=== PATIENT | female | born 1940 | race Caucasian/White ===

== ENCOUNTER 2017-04-02 08:15 | Day surgery (SDC) | payer MEDICARE ==
[2017-03-30 16:15] LABS: HEMATOCRIT 39.2 % (36.0-48.0); MCH 31.9 pg (26.0-34.0); MCHC 33.2 g/dL (31.0-37.0); MCV 96.1 fL (80.0-100.0); MEAN PLATELET VOLUME 10.9 fL (7.4-10.4); RBC 4.08 10x6/uL (4.00-5.40); RDW 13.3 % (11.5-14.5); WBC 6.5 10x3/uL (4.8-10.8)
[2017-03-30 16:30] LABS: ANION GAP 14.6 mmol/L (8-16); CALCIUM 9.8 mg/dL (8.5-10.1); CARBON DIOXIDE 26.6 mmol/L (21.0-32.0); CREATININE - SERUM 0.9 mg/dL (0.6-1.3); POTASSIUM - SERUM 4.2 mmol/L (3.5-5.1)
[~2017-04-02] VITALS: Ht 157.5 cm; Wt 90.9 kg
[2017-04-02] VITALS (12 sets, daily range): BP systolic 101–158; BP diastolic 47–84; Ht 157.5 cm; Wt 90.9 kg
[~2017-04-02 08:15] MED LIST: BAYER CHEWABLE81 MG PO; CELEXA20 MG PO; COZAAR100 MG PO; ELIQUIS2.5 MG PO; EZFE 200200 MG PO; HYDROCODONE-APA1 TAB PO; LODINE400 MG PO; MS CONTIN15 MG PO; MULTIPLE VITAMI1 TA1 PO; OXYCODONE HCL5 MG PO; PRAVACHOL40 MG PO; PRILOSEC20 MG PO; SYNTHROID175 MCG PO; TYLENOL W/CODEI1 TAB PO
[2017-04-03] VITALS: BP 120/56
[2017-04-03 04:00] VITALS: BP 127/62
[2017-04-03 06:04] LABS: BASOPHILS 0.2 % (0-2); EOSINOPHILS 1.1 % (0-7); HEMATOCRIT 35.2 % (36.0-48.0); HEMOGLOBIN 11.3 g/dL (12-16); IMMATURE GRANULOCYTES 0.2 % (0-5); LYMPHOCYTES 12.9 % (15-50); MCH 31.9 pg (26.0-34.0); MCHC 32.1 g/dL (31.0-37.0); MCV 99.4 fL (80.0-100.0); MEAN PLATELET VOLUME 11.2 fL (7.4-10.4); MONOCYTES 10.5 % (2-11); NEUTROPHILS 75.1 % (40-80); PLATELET COUNT 246 10x3/uL (130-400); RBC 3.54 10x6/uL (4.00-5.40); RDW 13.8 % (11.5-14.5); WBC 8.9 10x3/uL (4.8-10.8)
[2017-04-03 06:26] LABS: ANION GAP 14.8 mmol/L (8-16); CALCIUM 8.5 mg/dL (8.5-10.1); CARBON DIOXIDE 25.3 mmol/L (21.0-32.0); CREATININE - SERUM 1.1 mg/dL (0.6-1.3); MAGNESIUM - SERUM 1.8 mg/dL (1.8-2.4); POTASSIUM - SERUM 4.1 mmol/L (3.5-5.1)
--- NOTE | 2017-04-03 07:30 | NUR ---
RECIEVED PT DURING WALKING ROUNDS. PT RESTING IN BED WITH COMPLAINTS OF PAIN OF A 4 ON A SCALE OF 1-10. CANTEEN MANAGER IN USE. ASSESSMENT DONE PER FLOWSHEET. BED IN LOW POSITION AND CALL LIGHT WITHIN REACH. WILL CONTINUE TO MONITOR.
[2017-04-03 08:24] VITALS: BP 118/47
[2017-04-03 12:40] VITALS: BP 124/48
[2017-04-03 16:39] VITALS: BP 112/59
[2017-04-03 19:00] VITALS: BP 124/45
[2017-04-04 04:00] VITALS: BP 115/59
[2017-04-04 06:12] LABS: BASOPHILS 0.1 % (0-2); EOSINOPHILS 2.2 % (0-7); HEMATOCRIT 31.5 % (36.0-48.0); HEMOGLOBIN 10.3 g/dL (12-16); IMMATURE GRANULOCYTES 0.1 % (0-5); LYMPHOCYTES 9.5 % (15-50); MCH 32.6 pg (26.0-34.0); MCHC 32.7 g/dL (31.0-37.0); MCV 99.7 fL (80.0-100.0); MEAN PLATELET VOLUME 11.4 fL (7.4-10.4); MONOCYTES 11.9 % (2-11); NEUTROPHILS 76.2 % (40-80); PLATELET COUNT 208 10x3/uL (130-400); RBC 3.16 10x6/uL (4.00-5.40); WBC 8.7 10x3/uL (4.8-10.8)
[2017-04-04 06:41] LABS: ANION GAP 11.9 mmol/L (8-16); CARBON DIOXIDE 26.8 mmol/L (21.0-32.0); CREATININE - SERUM 0.9 mg/dL (0.6-1.3); POTASSIUM - SERUM 3.7 mmol/L (3.5-5.1)
--- NOTE | 2017-04-04 07:30 | NUR ---
RECIEVED PT DURING WALKING ROUNDS. PT RESTING IN BED WITH NO COMPLAINTS OF PAIN OR DISCOMFORT AT THIS TIME. ASSESSMENT DONE PER FLOWSHEET. BED IN LOW POSITION AND CALL LIGHT WITHIN REACH. WILL CONTINUE TO MONITOR.
[2017-04-04 08:21] VITALS: BP 122/57
[2017-04-04] MEDS ORDERED: OXYCODONE HCL5 MG PO (08:23)
--- NOTE | 2017-04-04 08:35 | NUR ---
AM MEDICATIONS GIVEN, NEW ABDOMINAL BINDER RECIEVED AND PLACED ON PT AT THIS TIME. REPTILE FARMER D/C'D. PT SITTING UP TO SIDE OF BED EATING BREAKFAST. CALL LIGHT WITHIN REACH. WILL CONTINUE TO MONITOR.
--- NOTE | 2017-04-04 12:20 | NUR ---
IV REMOVED CATH INTACT, DISCHARGE INSTRUCTIONS GIVEN. ASSISTED PT UP TO THE BATHROOM, PT STATED SHE FELT THE NEED TO THROW UP AND THEN BEGAN TO VOMIT. VOMIT WAS YELLOWISH IN COLOR. PT STATED SHE FELT MUCH BETTER AFTER AND HAD NO MORE NAUSEA. CALLED AT THIS TIME AND RECIEVED ORDERS TO CALL IN [facility]. PT DISCHARGED VIA WHEELCHAIR TO HOME WITH FAMILY MEMBER.
== END 2017-04-04 14:06 | disposition home or self-care (01) ==
LOC: D.MS 08:15 → D.OPS 08:15 → D.PAN 10:15 → D.OPS 10:15 → D.MS 14:28 → D.OPS 04-04 14:06
PROVIDERS: Anesthesiology; Surgery
DX: K43.0 Incisional hernia with obstruction, without gangrene (principal); Z53.31 Laparoscopic surgical procedure converted to open procedure; J44.1 Chronic obstructive pulmonary disease with (acute) exacerbation; E07.9 Disorder of thyroid, unspecified; I10 Essential (primary) hypertension; K21.9 Gastro-esophageal reflux disease without esophagitis; F32.9 Major depressive disorder, single episode, unspecified; Z96.641 Presence of right artificial hip joint; Z96.651 Presence of right artificial knee joint; Z79.899 Other long term (current) drug therapy; Z01.812 Encounter for preprocedural laboratory examination

== ENCOUNTER 2018-01-02 09:28 | Day surgery (SDC) | payer MEDICARE, BC ==
[2018-01-01 11:33] LABS: HEMATOCRIT 41.2 % (36.0-48.0); HEMOGLOBIN 13.5 g/dL (12-16); MCH 30.8 pg (26.0-34.0); MCHC 32.8 g/dL (31.0-37.0); MCV 94.1 fL (80.0-100.0); MEAN PLATELET VOLUME 10.9 fL (7.4-10.4); RBC 4.38 10x6/uL (4.00-5.40); RDW 13.4 % (11.5-14.5); WBC 7.6 10x3/uL (4.8-10.8)
[~2018-01-02] VITALS: Ht 157.5 cm; Wt 88.5 kg
[~2018-01-02 09:28] MED LIST changes: +CLARITIN 10 MG10 MG PO; +PROAIR HFA8.5 GM INH; +ZOLOFT50 MG PO
[2018-01-02 09:49] VITALS: BP 118/73; Ht 157.5 cm; Wt 88.5 kg
[2018-01-02] MEDS ORDERED: HYDROCODON-ACE1 EAC7 PO (13:05)
[2018-01-02] MEDS ORDERED: CYCLOBENZAPRINE10 MG PO (13:06)
== END 2018-01-02 16:30 | disposition home or self-care (01) ==
LOC: D.OPS 09:28 → D.PAN 09:30 → D.OPS 09:30 → D.PAN 09:50 → D.OPS 16:30
PROVIDERS: Anesthesiology
DX: K43.0 Incisional hernia with obstruction, without gangrene (principal); Z01.812 Encounter for preprocedural laboratory examination

== ENCOUNTER → 2019-06-16 10:26 | Outpatient (CLI) | payer MEDICARE, BC ==
[2018-01-02 09:49] VITALS: BMI 35.7
[~2019-06-16 10:26] MED LIST changes: +CYCLOBENZAPRINE10 MG PO; +HYDROCODON-ACE1 EAC7 PO
--- NOTE | 2019-06-19 13:56 | EC ---
PATIENT:DAVION JENKINS DATE OF SERVICE: 06/16/19 SEX: F MEDICAL RECORD: [id number] DATE OF : 38 LOCATION:[facility] AGE OF PATIENT: 78 ADMISSION DATE: 06/16/19 REFERRING PHYSICIAN: INTERPRETING PHYSICIAN: KYLE GARCIA MD ECHOCARDIOGRAM REPORT ECHO CHARGES 4 ECHO COMPLETE Date: 06/16/19 CLINICAL DIAGNOSIS: ANGINA/KHAN/MURMUR/DIZZINESS H/O HTN ECHOCARDIOGRAPHIC MEASUREMENTS (adult normal given) AC root (d.<3.7cm) 3.2 cm LV Septum d (<1.2 cm> 1.2 cm Valve Excursion 1.6 cm LV Septum (systole) 1.5 cm Left Atria (s.<4.0cm> 3.7 cm LVPW d(<1.2cm) 1.0 cm RV (d.<2.3cm) 2.7 cm LVPW (sytole) 1.6 cm LV diastole(<5.6CM) 4.9 cm MV E-F(>70mm/sec) cm LV systole 3.4 cm LVOT Diameter 1.8 cm MV exc.(>10mm) cm Est.ejection fraction (50-75%) % DOPPLER: LVIT cm/sec A 44.0 cm/sec E 94.0 cm/sec LA cm/sec RVSP 32.1 mmHg LVOT 109 cm/sec AOP1/2T m/s Asc. Ao 185 cm/sec RVOT 56.0 cm/sec RA cm/sec PA 100 cm/sec AV Gradient Peak 14.0 mmHg AV Mean 6.8 mmHg AV Area 1.4 cm MV Gradient Peak 5.2 mmHg MV Mean 1.7 mmHg MV Area cm COMMENTS: OP - HC Development Associate: 1 ALIYAH JOSÉ LUIS Salt Grinder: 3 Dr. Pritchett TAPE# PACS Pericardial Effusion N DATE OF SERVICE: Adequate 2D, color flow imaging, spectral Doppler, and M-mode. No LVH. LV internal dimensions were normal. Wall motions normal. EF is greater than or equal to 55%. Aortic valve is tricuspid. No evidence of stenosis by Doppler interrogation. Left atrium is normal. Mitral valve shows no prolapse. Nbex-vs-sucuvrew MR. Right-sided chambers are grossly normal. Mild TR. ECHOCARDIOGRAM REPORT [id number] DAVION JENKINS TRANSINT:[id number] Voice Confirmation ID: [id number] DOCUMENT ID: [id number] KYLE GARCIA MD at 1356 CC: [id number] DICTATION DATE: 06/17/19 1606 MAILING SECTION CLERK: 06/18/19 0058 DEP CLI 06/16/19 [place] [id number] [place] [id number]
--- NOTE | 2019-06-26 13:30 | ST ---
PATIENT:DAVION JENKINS MEDICAL RECORD: [id number] SEX: F LOCATION:[facility] ORDER #: ADMISSION DATE: 06/16/19 AGE OF PATIENT: 78 REFERRING PHYSICIAN: INTERPRETING PHYSICIAN: FAHAD KIMBLE MD DATE OF SERVICE: 06/16/2019 PROCEDURE: Nuclear stress test. INDICATIONS: Angina, hypertension, shortness of breath, hyperlipidemia. She was exercised on standard Lexiscan protocol with 33 mCi of sestamibi injected at peak stress, 11 mCi used previously for rest images. FINDINGS: Gated SPECT reveals preserved ejection fraction at 70% with good wall motion and thickening and brightening throughout all segments. SPECT imaging: Cardiolite was used as myocardial perfusion agent. There is homogeneous uptake throughout all segments at rest and stress with no evidence of inducible ischemia or previous infarction. OVERALL IMPRESSION: 1. This is a normal nuclear stress test with no evidence of inducible ischemia or previous infarction. 2. Gated SPECT reveals a preserved ejection fraction at 70%. In this patient with ongoing symptomatology, the current scan does not suggest the presence of hemodynamically significant coronary artery disease. Evaluate noncardiac etiology of chest pain. TRANSINT:[id number] Voice Confirmation ID: [id number] DOCUMENT ID: [id number] FAHAD KIMBLE MD at 1330 CC: YUE MARLEY MD [id number] DICTATION DATE: 06/18/19 1208 SENIOR TECHNICAL PROGRAM MANAGER: 06/19/19 0702 DEP CLI 06/16/19 [facility] [address] [place] [id number]
== END | disposition home or self-care (01) ==
LOC: D.HCCARDIO 10:26 → D.HCCECHO 11:30
PROVIDERS: ATTEND Internal Medicine Interventional Cardiology
DX: I20.9 Angina pectoris, unspecified (principal)

== ENCOUNTER 2020-06-13 20:10 | Emergency (ER) | payer MEDICARE, BC ==
[~2020-06-13] VITALS: Ht 157.5 cm; Wt 77.3 kg
[2020-06-13 20:13] VITALS: Ht 157.5 cm; Wt 77.3 kg
[2020-06-13 21:50] VITALS: BP 148/65
== END 2020-06-13 21:50 | disposition home or self-care (01) ==
LOC: D.ER 20:10
DX: S00.03XA Contusion of scalp, initial encounter (principal); W18.30XA Fall on same level, unspecified, initial encounter